=== PATIENT | male | born 1955 | race African-American/Black ===

== ENCOUNTER 2016-02-10 15:21 | Emergency (ER) ==
[2016-02-10 16:23] VITALS: BP 155/98
[2016-02-10] MEDS ORDERED: NORCO-10 PO ONE (16:40)
[2016-02-10] MEDS ORDERED: FLEXERIL PO ONE (16:40)
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
--- NOTE | 2016-02-11 08:14 | Diag Imaging Result Document ---
PROCEDURE NAME: LUMBAR SPINE - 02/10/2016 LUMBAR SPINE, 6 VIEWS: COMPARISON: None. FINDINGS: Alignment is straightened. No fracture or subluxation. Vertebral body heights and intervertebral disk spaces are preserved. There are some small multilevel degenerative osteophytes throughout the lumbar spine, worst at L2-L3 and L5-S1. Sacroiliac joints are clear. IMPRESSION: Multilevel degenerative disk disease. No acute injury.
== END 2016-02-10 18:01 | disposition home or self-care (01) ==
LOC: ED 15:21
DX: M62.830 Muscle spasm of back (principal); M54.5 Low back pain; I10 Essential (primary) hypertension; K21.9 Gastro-esophageal reflux disease without esophagitis; Z79.899 Other long term (current) drug therapy; X58.XXXA Exposure to other specified factors, initial encounter
CPT/HCPCS: 72110; 99283